=== PATIENT | male | born 1990 | race Caucasian/White ===

== ENCOUNTER → 2017-12-30 15:57 | Outpatient (CLI) | payer OTHER, MEDICAID, SELFPAY ==
--- NOTE | 2017-12-30 15:58 | DI.RAD.S_ITS ---
PROCEDURE: XR SHOULDER LT MIN 2V INDICATIONS: left shoulder pain TECHNIQUE: 3 views of the shoulder were acquired. COMPARISON: None. FINDINGS: Bones: No fractures or dislocations. No suspicious bony lesions. Visualized ribs appear intact. Degenerative changes of the acromioclavicular joint are present. Soft tissues: No suspicious soft tissue calcifications. IMPRESSION: No acute osseous abnormality of the left shoulder is evident. Dictated by: John Daugherty M.D. on 12/30/2017 at 15:12 Approved by: John Daugherty M.D. on 12/30/2017 at 15:13
== END ==
PROVIDERS: PCP Family Medicine; Visit Provider Physician Assistant
DX: M25.512 Pain in left shoulder (principal)
CPT/HCPCS: 73030

== ENCOUNTER 2024-12-04 04:53 | Emergency (ER) | payer OTHER, MEDICAID, SELFPAY ==
[2024-12-04] VITALS (12 sets, daily range): BP systolic 110–160; BP diastolic 58–68; PULSE 63–80; RESP 18; TEMP 36.7; O2SAT 97–100; BMI 33.3
--- NOTE | 2024-12-04 04:52 | ED_ITS ---
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 He does not recall preceding palpitation, fast heart rate sensation, chest pain, shortness of breath. No recent leg pain or swelling. No history of blood clots to legs or lungs. No aortic problems known. No previous seizures. No known coronary artery disease, bradycardia, tachycardia problems. Denies drug/alcohol use. No history of diabetes, no history of low sugar problems. Arrived by EMS, noted to have systolic blood pressure 100, on standing dropped to 70. Denies black or red stools. Related Data Home Medications ?Medication ?Instructions ?Recorded ?Confirmed Respironics Dreamstation CPAP #1 ea 12/22/18 04/17/19 Previous Rx's ?Medication ?Instructions ?Recorded cyclobenzaprine 5 mg tablet 5 mg PO TID PRN muscle spa sm #20 07/16/24 tabs Allergies Allergy/AdvReac Type Severity Reaction Status Date / Time methylphenidate (From Allergy Intermediate Violent Verified 12/04/24 05:02 RITALIN) Patient History <Herber Olivera MD - Last Filed: 12/04/24 21:51> Medical History (Updated 12/04/24 @ 06:36 by Herber Olivera MD) Tendinitis Excessive daytime sleepiness Obstructive sleep apnea (~2008) Sprain of left shoulder (12/30/17) Sleep apnea ADHD (attention deficit hyperactivity disorder) Ankle pain Family History (Updated 12/07/18 @ 11:56 by NAKIA Pryor) Father Age: 55 CAD (coronary artery disease) Grandfather CAD (coronary artery disease) Mother Opioid overdose Social History Smoking Status: Former smoker alcohol intake: current substance use type: does not use Exam <Herber Olivera MD - Last Filed: 12/04/24 21:51> Narrative Exam Narrative: GENERAL: Well-developed patient, in mild distress. HEAD: Atraumatic. Normocephalic. Left lateral eyebrow laceration 2.0 cm horizontal plane along the curvature was eyebrow, thru SQ to anterior muscle layer EYES: Pupils equal round and reactive. Extraocular motions intact. No scleral icterus. No injection or drainage. ENT: Nose without bleeding, purulent drainage. Throat without erythema, tonsillar hypertrophy or exudate. Airway patent. NECK: Trachea midline. Non tender CARDIOVASCULAR: Regular rate and rhythm without murmurs, gallops, or rubs. RESPIRATORY: Clear to auscultation. Breath sounds equal bilaterally. No wheezes, rales, or rhonchi. GASTROINTESTINAL: Abdomen soft, non-tender, nondistended. EXTREMITIES: No edema or joint tenderness. BACK: Nontender without deformity or crepitance. No flank tenderness. NEURO: AOx3. Motor functions grossly nonfocal. SKIN: No rash or erythema of visible areas Initial Vital Signs Initial Vital Signs: Vital Signs Pulse Rate 69 12/04/24 04:56 Pulse Oximetry 100 12/04/24 04:56 Oxygen Delivery Method Room Air 12/04/24 04:56 <Ute Feng DO - Last Filed: 12/04/24 08:08> Initial Vital Signs Initial Vital Signs: Vital Signs Pulse Rate 69 12/04/24 04:56 Pulse Oximetry 100 12/04/24 04:56 Oxygen Delivery Method Room Air 12/04/24 04:56 Procedures <Herber Olivera MD - Last Filed: 12/04/24 21:51> Laceration Repair Laceration 1: Time of procedure: 06:45 Description: linear Depth: involves muscle layer Local Anesthetic: lidocaine 1% Amount of anesthesia used (mL): 6 Skin layer suture size: 5-0 (Fast-Absorb sutures) Number of sutures: 6 Technique: simple, interrupted Subcutaneous layer closed with: vicryl Subcutaneous layer suture size: 4-0 Number of sutures: 3 Technique: simple, interrupted Muscle layer closed with: vicryl Muscle layer suture size: 4-0 Number of sutures: 2 Technique: simple, interrupted Course <Herber Olivera MD - Last Filed: 12/04/24 21:51> Orders Ordered: Discontinued Medications Sodium Chloride (Normal Saline 0.9%) 1,000 mls @ 1,000 mls/hr IV BOLUS ONE Stop: 12/04/24 05:52 Last Infusion: 12/04/24 07:06 Dose: Infused Documented By: Admin: 12/04/24 05:45 Dose: 1,000 mls/hr Documented By: TED Sodium Chloride (Normal Saline 0.9%) 1,000 mls @ 1,000 mls/hr IV BOLUS ONE Stop: 12/04/24 06:10 Last Admin: 12/04/24 05:48 Dose: Not Given Documented By: TED POTASSIUM CHLORIDE IN WATER (Potassium Cl 10 Meq/100 Ml Madelaine) 10 meq in 100 mls @ 100 mls/hr IV Q1H JANI Stop: 12/04/24 08:14 Last Admin: 12/04/24 08:06 Dose: Not Given Documented By: Infusion: 12/04/24 07:26 Dose: Infused Documented By: Admin: 12/04/24 06:21 Dose: 100 mls/hr Documented By: TED Lidocaine HCl (Lidocaine 1% (Pf) 5 Ml) 5 ml INJ NOW ONE Stop: 12/04/24 06:24 Last Admin: 12/04/24 06:25 Dose: 5 ml Documented By: TED Lidocaine/Prilocaine (Lidocaine/Prilocaine 5 Gm) 5 gm TOP NOW ONE Stop: 12/04/24 05:14 Last Admin: 12/04/24 05:26 Dose: 5 gm Documented By: HNG Potassium Chloride (Potassium Chloride 20 Meq/15 Ml Udc) 20 meq PO NOW ONE Stop: 12/04/24 06:32 Last Admin: 12/04/24 07:30 Dose: 20 meq Documented By: KEVIN Vital Signs Vital signs: Vital Signs - 8 hr 12/04/24 04:56 12/04/24 05:01 12/04/24 05:03 Temperature 98.1 F Pulse Rate 69 69 65 Respiratory Rate 18 Blood Pressure 112/67 Pulse Oximetry 100 99 97 Oxygen Delivery Method Room Air Room Air Room Air 12/04/24 05:04 12/04/24 05:04 12/04/24 05:42 Temperature Pulse Rate 67 71 Respiratory Rate Blood Pressure 112/67 Pulse Oximetry 100 99 Oxygen Delivery Method 12/04/24 05:43 12/04/24 05:43 12/04/24 06:00 Temperature Pulse Rate 67 Respiratory Rate Blood Pressure 117/68 110/58 L Pulse Oximetry 100 Oxygen Delivery Method Room Air 12/04/24 06:00 12/04/24 06:30 12/04/24 06:30 Temperature Pulse Rate 63 74 Respiratory Rate 18 Blood Pressure 125/68 Pulse Oximetry 97 100 Oxygen Delivery Method Room Air Room Air 12/04/24 07:00 12/04/24 07:00 12/04/24 07:30 Temperature Pulse Rate 79 Respiratory Rate Blood Pressure 132/61 160/65 H Pulse Oximetry 99 Oxygen Delivery Method 12/04/24 07:30 Temperature Pulse Rate 80 Respiratory Rate Blood Pressure Pulse Oximetry 98 Oxygen Delivery Method <Ute Feng, - Last Filed: 12/04/24 08:08> Orders Ordered: Discontinued Medications Sodium Chloride (Normal Saline 0.9%) 1,000 mls @ 1,000 mls/hr IV BOLUS ONE Stop: 12/04/24 05:52 Last Infusion: 12/04/24 07:06 Dose: Infused Documented By: Admin: 12/04/24 05:45 Dose: 1,000 mls/hr Documented By: TED Sodium Chloride (Normal Saline 0.9%) 1,000 mls @ 1,000 mls/hr IV BOLUS ONE Stop: 12/04/24 06:10 Last Admin: 12/04/24 05:48 Dose: Not Given Documented By: TED POTASSIUM CHLORIDE IN WATER (Potassium Cl 10 Meq/100 Ml Madelaine) 10 meq in 100 mls @ 100 mls/hr IV Q1H JANI Stop: 12/04/24 08:14 Last Admin: 12/04/24 08:06 Dose: Not Given Documented By: Infusion: 12/04/24 07:26 Dose: Infused Documented By: Admin: 12/04/24 06:21 Dose: 100 mls/hr Documented By: TED Lidocaine HCl (Lidocaine 1% (Pf) 5 Ml) 5 ml INJ NOW ONE Stop: 12/04/24 06:24 Last Admin: 12/04/24 06:25 Dose: 5 ml Documented By: TED Lidocaine/Prilocaine (Lidocaine/Prilocaine 5 Gm) 5 gm TOP NOW ONE Stop: 12/04/24 05:14 Last Admin: 12/04/24 05:26 Dose: 5 gm Documented By: JOSE MIGUEL Potassium Chloride (Potassium Chloride 20 Meq/15 Ml Udc) 20 meq PO NOW ONE Stop: 12/04/24 06:32 Last Admin: 12/04/24 07:30 Dose: 20 meq Documented By: ES Vital Signs Vital signs: Vital Signs - 8 hr 12/04/24 04:56 12/04/24 05:01 12/04/24 05:03 Temperature 98.1 F Pulse Rate 69 69 65 Respiratory Rate 18 Blood Pressure 112/67 Pulse Oximetry 100 99 97 Oxygen Delivery Method Room Air Room Air Room Air 12/04/24 05:04 12/04/24 05:04 12/04/24 05:42 Temperature Pulse Rate 67 71 Respiratory Rate Blood Pressure 112/67 Pulse Oximetry 100 99 Oxygen Delivery Method 12/04/24 05:43 12/04/24 05:43 12/04/24 06:00 Temperature Pulse Rate 67 Respiratory Rate Blood Pressure 117/68 110/58 L Pulse Oximetry 100 Oxygen Delivery Method Room Air 12/04/24 06:00 12/04/24 06:30 12/04/24 06:30 Temperature Pulse Rate 63 74 Respiratory Rate 18 Blood Pressure 125/68 Pulse Oximetry 97 100 Oxygen Delivery Method Room Air Room Air 12/04/24 07:00 12/04/24 07:00 12/04/24 07:30 Temperature Pulse Rate 79 Respiratory Rate Blood Pressure 132/61 160/65 H Pulse Oximetry 99 Oxygen Delivery Method 12/04/24 07:30 Temperature Pulse Rate 80 Respiratory Rate Blood Pressure Pulse Oximetry 98 Oxygen Delivery Method Medical Decision Making <Herber Olivera MD - Last Filed: 12/04/24 21:51> Lab Data Lab results reviewed: Yes I reviewed the patient's lab results. Lab results narrative: White blood cell count 09062, hemoglobin 13.7, platelets [id number] elevated. Glucose 140. Renal function normal, serum CO2 normal, sodium level normal. Potassium 3.1 low. Liver functions normal. Lipase elevated. VBG pH 7.37. Troponin negative/unmeasurable. Ethanol negative. UDS pending. 12/04/24 04:50 12/04/24 04:50 Labs: Lab Results 12/04/24 12/04/24 12/04/24 Range/Units 04:50 04:54 05:20 WBC 12.2 H (4.5-11.0) X10^3/uL RBC 4.53 (4.5-5.9) X10^6/uL Hgb 13.7 (13.5-17.5) g/dL Hct 40.6 L (41-53) % MCV 89.6 (80-100) fL MCH 30.3 (26-34) PG MCHC 33.8 (30-36) % RDW 12.6 (11.6-14.8) % Plt Count 595 H (150-400) X10^3/uL Neut % (Auto) 46.1 L (50-75) % Lymph % (Auto) 39.4 (25-40) % Carbon % (Auto) 8.1 (3-14) % Eos % (Auto) 6.1 H (2-4) % Baso % (Auto) 0.3 (0-2) % Neut # (Auto) 5600 (4823-9021) /uL Lymph # (Auto) 4800 H (7541-3767) /uL Carbon # (Auto) 1000 H (0-900) /uL Eos # (Auto) 700 H (0-450) /uL Baso # (Auto) 0 (0-100) /uL VBG pH (7.33-7.43) VBG pCO2 (45-50) mmHg VBG pO2 (35-45) mmHg VBG HCO3 (24-28) mmol/L VBG Total CO2 (24-29) mmol/L VBG O2 Saturation (70-75) % VBG Base Excess (0-4) mmol/L Sodium 138 (137-145) mmol/L Potassium 3.1 L (3.4-5.1) mmol/L Chloride 101 (98-107) mmol/L Carbon Dioxide 28 (22-32) mmol/L BUN 11 (9-20) mg/dL Creatinine 0.71 (0.66-1.25) mg/dL Estimated GFR > 60 (>60) mL/min BUN/Creatinine Ratio 15.5 (6-22) Glucose 140 H (70-99) mg/dL Lactate 2.1 (0.7-2.1) mmol/L Calcium 8.6 (8.4-10.2) mg/dL Magnesium 2.1 (1.6-2.3) mg/dL Total Bilirubin 0.4 (0.2-1.3) mg/dL AST 28 (17-59) IU/L ALT 24 (<50) IU/L Alkaline Phosphatase 54 (38-126) U/L Total Creatine Kinase 125 (55-170) U/L Troponin I < 0.012 (0.01-0.034) ng/mL Total Protein 7.2 (6.3-8.2) g/dL Albumin 4.3 (3.5-5.0) g/dL Globulin 2.9 (1.7-4.1) g/dL Albumin/Globulin Ratio 1.5 (1.0-2.8) Lipase 784 H (23-300) U/L Ethyl Alcohol < 10 (<10) mg/dL SARS-CoV-2 (PCR) Negative (Negative) Influenza A (RT-PCR) Flu a negative (NEGATIVE) Influenza B (RT-PCR) Flu b negative (NEGATIVE) RSV (PCR) Negative (Negative) 12/04/24 12/04/24 Range/Units 05:24 06:49 WBC (4.5-11.0) X10^3/uL RBC (4.5-5.9) X10^6/uL Hgb (13.5-17.5) g/dL Hct (41-53) % MCV (80-100) fL MCH (26-34) PG MCHC (30-36) % RDW (11.6-14.8) % Plt Count (150-400) X10^3/uL Neut % (Auto) (50-75) % Lymph % (Auto) (25-40) % Carbon % (Auto) (3-14) % Eos % (Auto) (2-4) % Baso % (Auto) (0-2) % Neut # (Auto) (7312-1183) /uL Lymph # (Auto) (0490-5209) /uL Carbon # (Auto) (0-900) /uL Eos # (Auto) (0-450) /uL Baso # (Auto) (0-100) /uL VBG pH 7.37 (7.33-7.43) VBG pCO2 50.0 (45-50) mmHg VBG pO2 33 L (35-45) mmHg VBG HCO3 29 H (24-28) mmol/L VBG Total CO2 27 (24-29) mmol/L VBG O2 Saturation 61 L (70-75) % VBG Base Excess 2.4 (0-4) mmol/L Sodium (137-145) mmol/L Potassium (3.4-5.1) mmol/L Chloride (98-107) mmol/L Carbon Dioxide (22-32) mmol/L BUN (9-20) mg/dL Creatinine (0.66-1.25) mg/dL Estimated GFR (>60) mL/min BUN/Creatinine Ratio (6-22) Glucose (70-99) mg/dL Lactate (0.7-2.1) mmol/L Calcium (8.4-10.2) mg/dL Magnesium (1.6-2.3) mg/dL Total Bilirubin (0.2-1.3) mg/dL AST (17-59) IU/L ALT (<50) IU/L Alkaline Phosphatase (38-126) U/L Total Creatine Kinase (55-170) U/L Troponin I < 0.012 (0.01-0.034) ng/mL Total Protein (6.3-8.2) g/dL Albumin (3.5-5.0) g/dL Globulin (1.7-4.1) g/dL Albumin/Globulin Ratio (1.0-2.8) Lipase (23-300) U/L Ethyl Alcohol (<10) mg/dL SARS-CoV-2 (PCR) (Negative) Influenza A (RT-PCR) (NEGATIVE) Influenza B (RT-PCR) (NEGATIVE) RSV (PCR) (Negative) ECG Data Attestation: I personally reviewed and interpreted this ECG as follows: Interpretation: 0502, normal sinus rhythm with rate of 69, no obvious ST segment elevation or depression changes. SD 168, QRS 116, QTC 398. MDM Narrative Medical decision making narrative: 34-year-old male with syncopal episode at work, no aura or preceding symptoms, struck his face, left lateral eyebrow laceration. DDx syncopal episode hypovolemia, dehydration, occult bleeding, aortic dissection, aortic aneurysm, primary [employer] event, ACS, VTE, intoxication state, withdrawal state, atypical seizure, other. Chest pain order set without aspirin initiated, add CT head and face. No neck pain or tenderness. CT angiogram chest with IV only CT abdomen and pelvis imaging also ordered. IV fluid bolus. Labs are still pending. Keep NPO. EKG normal sinus rhythm without obvious ischemic changes. Chest x-ray with no acute changes. See tele radiology report. Initial Lab data: White blood cell count 73638, hemoglobin 13.7, platelets [id number] elevated. Glucose 140. Renal function normal, serum CO2 normal, sodium level normal. Potassium 3.1 low. Liver functions normal. Lipase elevated. VBG pH 7.37. Troponin negative/unmeasurable. Ethanol negative. UDS pending. Low potassium, we will keep NPO for now pending CT results, IV potassium chloride. CT head noncontrast. No acute changes. See tele radiology report. CT Face noncontrast. No bony injury patterns described. See tele radiology report. CT angiogram chest. No pulmonary embolus. No pulmonary infiltrates described. No aortic syndrome described. See tele radiology report. CT abdomen and pelvis. No acute findings. Signs of constipation noted. See tele radiology report. Oral potassium further supplementation. Multilayer closure left eyebrow laceration, see procedure note. 07, repeat troponin pending, signed out to Dr Feng 07 patient is signed out to me by Dr. Olivera. Patient is a 34-year-old male who was at work when he had a syncopal episode. He had extensive workup found to be mildly hypokalemic with a potassium 3.1. He was placed by 20 p.o. and 10 IV. He is tolerating oral fluids. He passed ambulation trial. He reports he was at the dentist last week for an infected tooth and they told him his blood pressure was high. That point he decided to go on a diet he has been eating more fruits and vegetables and less frozen food. He also reports some left upper quadrant pain which radiated to his left chest. It is possible he has not had enough intake which caused his syncopal episode. No evidence of pulmonary embolism intra-abdominal abnormality cardiac arrhythmia or murmur. <Ute Feng, DO - Last Filed: 12/04/24 08:08> Lab Data Labs: Lab Results 12/04/24 12/04/24 12/04/24 Range/Units 04:50 04:54 05:20 WBC 12.2 H (4.5-11.0) X10^3/uL RBC 4.53 (4.5-5.9) X10^6/uL Hgb 13.7 (13.5-17.5) g/dL Hct 40.6 L (41-53) % MCV 89.6 (80-100) fL MCH 30.3 (26-34) PG MCHC 33.8 (30-36) % RDW 12.6 (11.6-14.8) % Plt Count 595 H (150-400) X10^3/uL Neut % (Auto) 46.1 L (50-75) % Lymph % (Auto) 39.4 (25-40) % Carbon % (Auto) 8.1 (3-14) % Eos % (Auto) 6.1 H (2-4) % Baso % (Auto) 0.3 (0-2) % Neut # (Auto) 5600 (4800-7969) /uL Lymph # (Auto) 4800 H (3323-2429) /uL Carbon # (Auto) 1000 H (0-900) /uL Eos # (Auto) 700 H (0-450) /uL Baso # (Auto) 0 (0-100) /uL VBG pH (7.33-7.43) VBG pCO2 (45-50) mmHg VBG pO2 (35-45) mmHg VBG HCO3 (24-28) mmol/L VBG Total CO2 (24-29) mmol/L VBG O2 Saturation (70-75) % VBG Base Excess (0-4) mmol/L Sodium 138 (137-145) mmol/L Potassium 3.1 L (3.4-5.1) mmol/L Chloride 101 (98-107) mmol/L Carbon Dioxide 28 (22-32) mmol/L BUN 11 (9-20) mg/dL Creatinine 0.71 (0.66-1.25) mg/dL Estimated GFR > 60 (>60) mL/min BUN/Creatinine Ratio 15.5 (6-22) Glucose 140 H (70-99) mg/dL Lactate 2.1 (0.7-2.1) mmol/L Calcium 8.6 (8.4-10.2) mg/dL Magnesium 2.1 (1.6-2.3) mg/dL Total Bilirubin 0.4 (0.2-1.3) mg/dL AST 28 (17-59) IU/L ALT 24 (<50) IU/L Alkaline Phosphatase 54 (38-126) U/L Total Creatine Kinase 125 (55-170) U/L Troponin I < 0.012 (0.01-0.034) ng/mL Total Protein 7.2 (6.3-8.2) g/dL Albumin 4.3 (3.5-5.0) g/dL Globulin 2.9 (1.7-4.1) g/dL Albumin/Globulin Ratio 1.5 (1.0-2.8) Lipase 784 H (23-300) U/L Ethyl Alcohol < 10 (<10) mg/dL SARS-CoV-2 (PCR) Negative (Negative) Influenza A (RT-PCR) Flu a negative (NEGATIVE) Influenza B (RT-PCR) Flu b negative (NEGATIVE) RSV (PCR) Negative (Negative) 12/04/24 12/04/24 Range/Units 05:24 06:49 WBC (4.5-11.0) X10^3/uL RBC (4.5-5.9) X10^6/uL Hgb (13.5-17.5) g/dL Hct (41-53) % MCV (80-100) fL MCH (26-34) PG MCHC (30-36) % RDW (11.6-14.8) % Plt Count (150-400) X10^3/uL Neut % (Auto) (50-75) % Lymph % (Auto) (25-40) % Carbon % (Auto) (3-14) % Eos % (Auto) (2-4) % Baso % (Auto) (0-2) % Neut # (Auto) (2925-4303) /uL Lymph # (Auto) (0468-6499) /uL Carbon # (Auto) (0-900) /uL Eos # (Auto) (0-450) /uL Baso # (Auto) (0-100) /uL VBG pH 7.37 (7.33-7.43) VBG pCO2 50.0 (45-50) mmHg VBG pO2 33 L (35-45) mmHg VBG HCO3 29 H (24-28) mmol/L VBG Total CO2 27 (24-29) mmol/L VBG O2 Saturation 61 L (70-75) % VBG Base Excess 2.4 (0-4) mmol/L Sodium (137-145) mmol/L Potassium (3.4-5.1) mmol/L Chloride (98-107) mmol/L Carbon Dioxide (22-32) mmol/L BUN (9-20) mg/dL Creatinine (0.66-1.25) mg/dL Estimated GFR (>60) mL/min BUN/Creatinine Ratio (6-22) Glucose (70-99) mg/dL Lactate (0.7-2.1) mmol/L Calcium (8.4-10.2) mg/dL Magnesium (1.6-2.3) mg/dL Total Bilirubin (0.2-1.3) mg/dL AST (17-59) IU/L ALT (<50) IU/L Alkaline Phosphatase (38-126) U/L Total Creatine Kinase (55-170) U/L Troponin I < 0.012 (0.01-0.034) ng/mL Total Protein (6.3-8.2) g/dL Albumin (3.5-5.0) g/dL Globulin (1.7-4.1) g/dL Albumin/Globulin Ratio (1.0-2.8) Lipase (23-300) U/L Ethyl Alcohol (<10) mg/dL SARS-CoV-2 (PCR) (Negative) Influenza A (RT-PCR) (NEGATIVE) Influenza B (RT-PCR) (NEGATIVE) RSV (PCR) (Negative) MDM Narrative Medical decision making narrative: 34-year-old male with syncopal episode work, no aura or preceding symptoms, struck his face, left lateral eyebrow laceration. DDx syncopal episode hypovolemia, dehydration, occult bleeding, aortic dissection, aortic aneurysm, primary [employer] event, ACS, VTE, intoxication state, withdrawal state, atypical seizure, other. Chest pain order set without aspirin initiated, add CT head and cervical spine noncontrast imaging, with CT face. CT angiogram chest with IV only CT abdomen and pelvis imaging also ordered. IV fluid bolus. Labs are still pending. Keep NPO. EKG normal sinus rhythm without obvious ischemic changes. Chest x-ray with no acute changes. See tele radiology report. Initial Lab data: White blood cell count 24497, hemoglobin 13.7, platelets 115437 elevated. Glucose 140. Renal function normal, serum CO2 normal, sodium level normal. Potassium 3.1 low. Liver functions normal. Lipase elevated. VBG pH 7.37. Troponin negative/unmeasurable. Ethanol negative. UDS pending. Low potassium, we will keep NPO for now pending CT results, IV potassium chloride. CT head noncontrast. No acute changes. See tele radiology report. CT Face noncontrast. No bony injury patterns described. See tele radiology report. CT angiogram chest. No pulmonary embolus. No pulmonary infiltrates described. No aortic syndrome described. See tele radiology report. CT abdomen and pelvis. No acute findings. Signs of constipation noted. See tele radiology report. Oral potassium further supplementation. Multilayer closure left eyebrow laceration, see procedure note. 07, repeat troponing pending, signed out to Dr Feng 07 patient is signed out to me by Dr. Olivera. Patient is a 34-year-old male who was at work when he had a syncopal episode. He had extensive workup found to be mildly hypokalemic with a potassium 3.1. He was placed by 20 p.o. and 10 IV. He is tolerating oral fluids. He passed ambulation trial. He reports he was at the dentist last week for an infected tooth and they told him his blood pressure was high. That point he decided to go on a diet he has been eating more fruits and vegetables and less frozen food. He also reports some left upper quadrant pain which radiated to his left chest. It is possible he has not had enough intake which caused his syncopal episode. No evidence of pulmonary embolism intra-abdominal abnormality cardiac arrhythmia or murmur. Discharge Plan Departure Patient Disposition: Home Clinical Impression: Syncope and collapse, Hypokalemia, Laceration of eyebrow, complex Activity Restrictions/Additional Instructions: *You have been diagnosed with syncope *What to do: At this time you had extensive workup today in the emergency department. Your potassium is slightly low. This should, with normal food and drink. He is sure that your staying hydrated and eating regular. May need a Holter monitor with your primary care doctor if this should continue *Continue to take medications as directed *Follow up with your primary care provider in 2-3 days or call [phone] *Return to ER if you should have recurrent episode of passing out dizziness lightheadedness chest pain or palpitations [or] any new, worsening or concerning symptoms Prescriptions: No Action cyclobenzaprine 5 mg tablet 5 mg PO TID PRN (Reason: muscle spasm) Qty: 20 0RF (DME) Respironics Dreamstation CPAP Qty: 1 Patient Comments: Pressure: 16-20 cmH2O DME: [facility] Instructions: As directed Referrals: [facility], [Primary Care Provider, Family Practice] Stand Alone Forms: Patient Portal/API
--- NOTE | 2024-12-04 04:53 | DI.RAD.S_ITS ---
PROCEDURE: XR CHEST 1V INDICATIONS: chest pain TECHNIQUE: One view of the chest was acquired. COMPARISON: [facility], , CHEST 2 VIEW, 05/14/2017, 8:45. FINDINGS: Surgical changes and devices: None. Lungs and pleura: Lungs are clear. No pleural effusions or pneumothorax. Mediastinum: Mediastinal contours appear normal. Heart size is normal. Bones and chest wall: No suspicious bony lesions. Overlying soft tissues appear unremarkable. IMPRESSION: No acute cardiopulmonary abnormality is seen. Dictated by: Deon Pandey M.D. on 12/04/2024 at 7:54 Approved by: Deon Pandey M.D. on 12/04/2024 at 7:54
--- NOTE | 2024-12-04 05:02 | EKG_ITS ---
[address] [address] Test Date: 2024-12-04 Pat Name: Karan Hilton Department: [facility] Room: Gender: Male Physician Practice Coordinator: NEDA GARCIA : 1990 Requested By: Order Number: [id number] Reading MD: Bill Copeland MD Measurements Intervals [place] Rate: 69 P: 51 MS: 168 QRS: 55 QRSD: 116 T: 22 QT: 372 QTc: 398 Interpretive Statements Normal sinus rhythm Electronically Signed On 12-04-2024 7:38:11 PDT by Bill Copeland MD
--- NOTE | 2024-12-04 05:10 | DI.CT.S_ITS ---
PROCEDURE: CT HEAD/BRAIN WO CON INDICATIONS: syncope TECHNIQUE: Noncontrast 4.5 mm thick angled axial sections acquired from the foramen magnum to the vertex, with coronal and sagittal reformats. For radiation dose reduction, the following was used: automated exposure control, adjustment of mA and/or kV according to patient size. COMPARISON: None. FINDINGS: Image quality: Diagnostic. CSF spaces: Basal cisterns are patent. No extra-axial fluid collections. Ventricles are normal in size and shape. Brain: No midline shift. No intracranial mass effect or hemorrhage. Espinosa- white matter interface is normal. Skull and face: Calvarium and visualized facial bones are intact, without suspicious lesions. Sinuses: Visualized sinuses and mastoids are clear. IMPRESSION: No acute intracranial pathology. Dictated by: Deon Pandey M.D. on 12/04/2024 at 7:55 Approved by: Deon Pandey M.D. on 12/04/2024 at 7:55
--- NOTE | 2024-12-04 05:10 | DI.CT.S_ITS ---
PROCEDURE: CT FACIAL BONES WO CON INDICATIONS: L periorbital lac TECHNIQUE: Noncontrast 2.5 mm thick axial images acquired from the mandible through the frontal sinuses, with coronal and sagittal reformatting. For radiation dose reduction, the following was used: automated exposure control, adjustment of mA and/or kV according to patient size. COMPARISON: None. FINDINGS: Image quality: Excellent. Bones and teeth: Orbital wilkerson are intact. Sinus iwlkerson show no fracture or deformity. Nasal bones and septum are intact. Visualized portions of the mandible demonstrate no fractures or subluxation. Zygomatic arches are intact. Pterygoid plates are intact. Visualized portions of the skull base and auditory canals are intact. Sinuses: Paranasal sinuses are aerated, without fluid levels, mucosal thickening, or mucoceles. Mastoid air cells are aerated. Soft tissues: Left periorbital skin laceration. No enlarged lymph nodes. No soft tissue lacerations or debris. Vascular: Visualized vascular structures appear normal in the absence of contrast. Bony vascular foramina and canals are intact. IMPRESSION: 1. No acute facial bone fracture or mandibular fracture noted. 2. Paranasal sinuses are clear. Comment: Final report is concordant with preliminary interpretation provided by [facility]. Dictated by: Deon Pandey M.D. on 12/04/2024 at 7:55 Approved by: Deon Pandey M.D. on 12/04/2024 at 7:57
--- NOTE | 2024-12-04 05:12 | DI.CT.S_ITS ---
PROCEDURE: CT ANGIO CHEST PE PROTOCOL INDICATIONS: syncope TECHNIQUE: After the administration of intravenous contrast, 2 mm thick sections acquired from the pulmonary apices to the posterior costophrenic angles. 3-dimensional maximum intensity projection (MIP) coronal and sagittal reformats were then acquired through the thorax. For radiation dose reduction, the following was used: automated exposure control, adjustment of mA and/or kV according to patient size. COMPARISON: None. FINDINGS: Image quality: Diagnostic. Pulmonary arteries: Pulmonary arteries are normal in size, and demonstrate no intraluminal filling defects to suggest central pulmonary embolism. Lower Neck: No enlarged lymph nodes. Thyroid: No thyroid nodules which require sonographic follow up, per consensus guidelines. Axillae: No enlarged lymph nodes. Chest Wall: Unremarkable. Bones: Unremarkable. Lungs and Pleura: No pneumothorax or pleural effusions. No consolidation or suspicious nodules. Heart: Heart size is normal. No pericardial effusion. Thoracic Vessels: No aortic aneurysm. Mediastinum and Claudia: No enlarged lymph nodes. Esophagus: No wall thickening. No hiatal hernia. Upper Abdomen: Visualized upper abdomen solid organs and bowel loops appear normal. IMPRESSION: No pulmonary embolus. No acute cardiopulmonary process. Comment: Final report is concordant with preliminary interpretation provided by [facility]. Dictated by: Deon Pandey M.D. on 12/04/2024 at 7:57 Approved by: Deon Pandey M.D. on 12/04/2024 at 7:58
--- NOTE | 2024-12-04 05:12 | DI.CT.S_ITS ---
PROCEDURE: CT ABDOMEN PELVIS W CON INDICATIONS: LUQ abd pain, syncope TECHNIQUE: After the administration of intravenous contrast, axial sections acquired from the lung bases to the pubic symphysis. Coronal and sagittal reformats were performed. For radiation dose reduction, the following was used: automated exposure control, adjustment of mA and/or kV according to patient size. COMPARISON: None. FINDINGS: Image quality: Diagnostic. Lower Chest: No significant findings. ABDOMEN: Liver: No solid mass. Gallbladder: No radiopaque gallstones or wall thickening. Biliary ducts: No biliary dilation. Pancreas: No ductal dilation. Spleen: Size is within normal limits. Adrenal Glands: No adrenal nodules. Kidneys and Ureters: No hydronephrosis. No solid mass. No complex renal cystic lesion which requires follow up. Stomach and Bowel: Normal colonic caliber, without significant wall thickening. Large fecal load. Normal appendix. Peritoneum: No abnormal intraperitoneal fluid. No free air. Ventral Wall: No significant ventral hernia. Abdominal Nodes: No retroperitoneal or mesenteric adenopathy by size criteria. Vessels: Aorta and inferior vena cava are normal in size. PELVIS: Pelvic Organs: Unremarkable. Bladder: No bladder wall thickening, accounting for underdistention. Pelvic Nodes: No enlarged lymph nodes. Miscellaneous: No inguinal hernias are seen. Bones: No aggressive osseous abnormality. IMPRESSION: Large fecal load. No acute abdominal process. Comment: Final report is concordant with preliminary interpretation provided by [facility]. Dictated by: Deon Pandey M.D. on 12/04/2024 at 7:59 Approved by: Deon Pandey M.D. on 12/04/2024 at 8:02
[2024-12-04 05:26] LABS: Add Manual Diff / Slide Review NO; Hematocrit 40.6 % (41-53); Hemoglobin 13.7 g/dL (13.5-17.5); Lymphocytes Absolute Auto 4800 /uL (1100-4500); Mean Corpuscular HGB Conc 33.8 % (30-36); Mean Corpuscular Hemoglobin 30.3 PG (26-34); Mean Corpuscular Volume 89.6 fL (80-100); Platelet Count 595 X10^3/uL (150-400)
[2024-12-04] MEDS: LIDOCAINE/PRILOCAINE 5 GM TOP (05:26)
[2024-12-04 05:27] LABS: Base Excess VBG 2.4 mmol/L (0-4); HCO3 VBG 29 mmol/L (24-28); Oxygen Saturation VBG 61 % (70-75); PCO2 VBG 50.0 mmHg (45-50); PO2 VBG 33 mmHg (35-45); Total CO2 VBG 27 mmol/L (24-29); pH VBG 7.37 (7.33-7.43)
[2024-12-04 05:39] LABS: Alanine Aminotransferase 24 IU/L (<50); Albumin 4.3 g/dL (3.5-5.0); Albumin Globulin Ratio 1.5 (1.0-2.8); Alkaline Phosphatase 54 U/L (38-126); Blood Urea Nitrogen 11 mg/dL (9-20); Calcium 8.6 mg/dL (8.4-10.2); Carbon Dioxide 28 mmol/L (22-32); Chloride 101 mmol/L (98-107); Creatine Kinase 125 U/L (55-170); Estimated Glomerular Filt Rate > 60 mL/min (>60); Globulin 2.9 g/dL (1.7-4.1); Glucose 140 mg/dL (70-99); HEMOLYSIS < 15 (0-50); Lactate (Lactic Acid) 2.1 mmol/L (0.7-2.1); Lipase 784 U/L (23-300); Potassium 3.1 mmol/L (3.4-5.1); Sodium 138 mmol/L (137-145); Total Protein 7.2 g/dL (6.3-8.2)
[2024-12-04 05:40] LABS: Ethanol (ETOH) < 10 mg/dL (<10)
[2024-12-04] MEDS: SODIUM CHLORIDE 0.9% 1,000 ML 1000 ML IV (05:45)
[2024-12-04 05:51] LABS: Troponin I < 0.012 ng/mL (0.01-0.034)
[2024-12-04] MEDS: POTASSIUM CHLORIDE IN WATER 10 MEQ/100 ML PIGGYBACK 100 MEQ IV (06:21)
[2024-12-04] MEDS: LIDOCAINE 1% (PF) 5 ML INJ (06:25)
[2024-12-04 06:27] LABS: Magnesium 2.1 mg/dL (1.6-2.3)
--- NOTE | 2024-12-04 06:37 | PC.NURSE ---
Wound irrigated with 250ml NS
[2024-12-04 06:43] LABS: Influenza A - CEPHEID Flu A NEGATIVE (NEGATIVE); Influenza B - CEPHEID Flu B NEGATIVE (NEGATIVE)
[2024-12-04 06:47] LABS: COVID-19 CEPHEID 4-PLEX PCR Negative (Negative)
[2024-12-04 06:58] LABS: Reflexed Lactate in 2 Hours Y
[2024-12-04] MEDS: POTASSIUM CHLORIDE 20 MEQ/15 ML UDC PO (07:30)
[2024-12-04 07:47] LABS: Troponin I < 0.012 ng/mL (0.01-0.034)
== END 2024-12-04 08:13 | disposition home or self-care (01) ==
PROVIDERS: Emergency Medicine; Emergency Provider Emergency Medicine; PCP Family Medicine
DX: R55 Syncope and collapse (principal); E87.6 Hypokalemia; S01.112A Laceration without foreign body of left eyelid and periocular area, initial encounter
CPT/HCPCS: 12011; 36415; 70450; 70486; 71045; 71275; 74177; 80053; 80320; 82550; 82805; 83605; 83690; 83735; 84484; 85025; 87637; 93005; 96360; 99285; Q9967

== ENCOUNTER → 2024-12-08 10:05 | Outpatient (CLI) | payer OTHER, SELFPAY ==
[2024-12-08 11:11] LABS: Add Manual Diff / Slide Review NO; Hematocrit 42.5 % (41-53); Hemoglobin 14.5 g/dL (13.5-17.5); Lymphocytes Absolute Auto 2100 /uL (1100-4500); Mean Corpuscular HGB Conc 34.1 % (30-36); Mean Corpuscular Hemoglobin 30.6 PG (26-34); Mean Corpuscular Volume 89.5 fL (80-100); Platelet Count 503 X10^3/uL (150-400)
[2024-12-08 11:41] LABS: Alanine Aminotransferase 19 IU/L (<50); Albumin 4.4 g/dL (3.5-5.0); Albumin Globulin Ratio 1.6 (1.0-2.8); Alkaline Phosphatase 58 U/L (38-126); Blood Urea Nitrogen 12 mg/dL (9-20); Calcium 9.5 mg/dL (8.4-10.2); Carbon Dioxide 27 mmol/L (22-32); Chloride 101 mmol/L (98-107); Cholesterol 153 mg/dL (140-199); Estimated Glomerular Filt Rate > 60 mL/min (>60); Globulin 2.7 g/dL (1.7-4.1); Glucose 105 mg/dL (70-99); HDL Cholesterol 51 mg/dL (40-60); HEMOLYSIS < 15 (0-50); Lipase 703 U/L (23-300); Potassium 4.5 mmol/L (3.4-5.1); Sodium 137 mmol/L (137-145); Total Protein 7.1 g/dL (6.3-8.2); Triglycerides 180 mg/dL (35-150)
[2024-12-08 13:27] LABS: Hemoglobin A1C% w Est Avg Glu 5.4 % (4.0-6.0)
== END ==
PROVIDERS: PCP Family Medicine; Referring Provider Family Medicine; Visit Provider Family Medicine
DX: E87.6 Hypokalemia (principal); R74.8 Abnormal levels of other serum enzymes; R55 Syncope and collapse; S01.119A Laceration without foreign body of unspecified eyelid and periocular area, initial encounter
CPT/HCPCS: 36415; 80053; 80061; 83036; 83690; 85025